=== PATIENT | female | born 1975 | race Caucasian/White ===

== ENCOUNTER 2021-02-17 22:06 | Emergency (ER) | payer MEDICAID ==
[~2021-02-17] VITALS: Ht 152.4 cm; Wt 66.5 kg
[2021-02-17 22:26] VITALS: BP 136/75
--- NOTE | 2021-02-17 22:26 | NUR ---
45 YO F BIB SELF WITH C/C OF DIZZINES, H/A, AND FATIGUED X3DAYS. PT STATES SHE JUST FEELS UNWELL. ADLS CAUSE SOB. HAS HX ANEMIA. HX, RX, ALLERGIES DENIED
--- NOTE | 2021-02-17 22:38 | NUR ---
PT BACK IN LOBBY WAITING FOR BED.
[2021-02-18] MEDS ORDERED: NACL 0.9% 1,000 ML IV ONE (00:05)
[2021-02-18] MEDS ORDERED: MECLIZINE 25 MG TAB PO ONE (00:05)
--- NOTE | 2021-02-18 00:13 | NUR ---
PT IN CHAIR A.
[2021-02-18 00:20] LABS: BASOPHILS # (AUTO) 0.1 K/uL (0.00-0.22); BASOPHILS % (AUTO) 1.1 % (0.0-2.0); EOSINOPHILS % (AUTO) 0.6 % (0.0-4.0); HEMATOCRIT 31.9 % (36-48); HEMOGLOBIN 10.5 g/dL (12.0-16.0); LYMPHOCYTES # (AUTO) 1.9 K/uL (2.5-16.5); LYMPHOCYTES % (AUTO) 29.5 % (20.5-51.1); MEAN CORPUSCULAR HEMOGLOBIN 25 pg (27-31); MEAN CORPUSCULAR HGB CONC 33 g/dL (33-37); MEAN CORPUSCULAR VOLUME 75.9 fL (80-94); MONOCYTES # (AUTO) 0.6 K/uL (0.8-1.0); MONOCYTES % (AUTO) 9.7 % (1.7-9.3); NEUTROPHILS # (AUTO) 3.8 K/uL (1.8-7.7); NEUTROPHILS % (AUTO) 59.1 % (42.2-75.2); PLATELET COUNT (AUTO) 207 K/uL (140-450); RED CELL DISTRIBUTION WIDTH 16.8 % (11.6-13.7); WHITE BLOOD COUNT (AUTO) 6.4 K/uL (4.8-10.8)
--- NOTE | 2021-02-18 00:24 | NUR ---
PT PLACED IN CHAIR B.
--- NOTE | 2021-02-18 00:33 | NUR ---
AFTER STARTING FLUIDS PT BEGAN COUGHING, STATED SHE FELT SOB AND NAUSEOUS. PT SATING AT 100%RA ON PULSE OX. LUNG SOUNDS ARE CLEAR THROUGHOUT FIELD. SHADY [place] MADE AWARE, STATED IT'S OK TO CONTINUE FLUIDS AND GIVE ZOFRAN, ORDERS CARRIED OUT.
[2021-02-18] MEDS ORDERED: ONDANSETRON 4 MG/2 ML VIAL IVP ONE (00:35)
[2021-02-18 00:39] LABS: ALBUMIN 3.5 g/dL (3.4-5.0); ANION GAP 11.3 (8-16); CARBON DIOXIDE 30.3 mmol/L (21-32); CREATININE 0.6 mg/dL (0.6-1.3); POTASSIUM 3.6 mmol/L (3.5-5.1); TOTAL BILIRUBIN 0.2 mg/dL (0.0-1.0)
--- NOTE | 2021-02-18 01:32 | NUR ---
PT TAKEN TO ER BED 08
--- NOTE | 2021-02-18 02:34 | NUR ---
PT SLEEPING WITH HOB ELEVATED. X2 SIDE RAILS UP FOR PT SAFETY. PT DAUGHTER AT BEDSIDE SLEEPING WELL.
[2021-02-18] MEDS ORDERED: MECL-303 PO (02:46)
[2021-02-18 03:01] VITALS: BP 118/74
--- NOTE | 2021-02-18 03:01 | NUR ---
Patient discharged with v/s stable. Written and verbal after care instructions given and explained. Patient alert, oriented and verbalized understanding of instructions. Ambulatory with steady gait. All questions addressed prior to discharge. ID band removed. Patient advised to follow up with PMD. Rx of ANTIVERT given. Patient educated on indication of medication including possible reaction and side effects. Opportunity to ask questions provided and answered.
== END 2021-02-18 03:01 | disposition home or self-care (01) ==
LOC: MED 22:06
DX: R42 Dizziness and giddiness (principal); R06.02 Shortness of breath; R11.0 Nausea; Z79.899 Other long term (current) drug therapy
CPT/HCPCS: 36415; 71045; 80053; 84484; 85025; 93005; 96361; 96374; 99283; J2405; J7030; J8597